=== PATIENT | male | born 1990 | race Caucasian/White ===

== ENCOUNTER 2017-03-30 08:58 | Emergency (ER) | payer SELFPAY ==
[2017-03-30 09:45] VITALS: BP 139/79
--- NOTE | 2017-03-30 11:05 | RAD ---
INDICATION: Cough fever and wheezing. COMPARISON: There are no prior studies available for comparison. TECHNIQUE: Dual-energy PA and lateral views of the chest were obtained. FINDINGS: The heart is within normal limits in size. Mediastinal and hilar contours appear within normal limits. The lungs are clear. No pleural effusion is present. IMPRESSION: NO EVIDENCE FOR ACTIVE CARDIOPULMONARY DISEASE.
--- NOTE | 2017-03-30 11:10 | UC ---
Respiratory Complaint HPI - HPI Summary HPI Summary: PT C/O SEVERAL WEEKS OF HARSH COUGH, CONGESTION, MADERA, FATIGUE, SUBJECTIVE FEVER AND CHILLS. HAS BODY ACHES. - History of Current Complaint Chief Complaint: UCRespiratory Stated Complaint: DIZZY,EXHAUSTED/HEADACHE Time Seen by Provider: 03/30/17 10:35 Hx Obtained From: Patient Onset/Duration: Gradual Onset, Lasting Weeks, Still Present Timing: Constant Severity Initially: Moderate Severity Currently: Moderate Pain Intensity: 7 Pain Scale Used: 0-10 Numeric Character: Cough: Productive Aggravating Factors: Nothing Alleviating Factors: Nothing Associated Signs And Symptoms: Positive: Fever, Chills, Wheezing, Nasal Congestion. Negative: Dyspnea - Allergies/Home Medications Allergies/Adverse Reactions: Allergies Allergy/AdvReac Type Severity Reaction Status Date / Time No Known Allergies Allergy Verified 03/30/17 09:44 PMH/Surg Hx/FS Hx/Imm Hx Previously Healthy: Yes - Surgical History Surgical History: None - Family History Known Family History: Positive: Hypertension - Social History Alcohol Use: Occasionally Substance Use Type: None Smoking Status (MU): Light Every Day Tobacco Smoker Type: Smokeless Tobacco Amount Used/How Often: 1 can per week Review of Systems Constitutional: Fever, Chills, Fatigue ENT: Nasal Discharge Respiratory: Cough Cardiovascular: Negative Gastrointestinal: Nausea Genitourinary: Negative Musculoskeletal: Myalgia Neurological: Headache All Other Systems Reviewed And Are Negative: Yes Physical Exam Triage Information Reviewed: Yes Appearance: No Pain Distress, Well-Nourished, Ill-Appearing - mildly Vital Signs: Initial Vital Signs Temp 98.8 F 03/30/17 09:40 Pulse 83 03/30/17 09:40 Resp 16 03/30/17 09:40 BP 139/79 03/30/17 09:40 Pulse Ox 99 03/30/17 09:40 Vital Signs Reviewed: Yes Eyes: Positive: Conjunctiva Clear ENT: Positive: Hearing grossly normal, Pharynx normal, TMs normal - BUT PARTIALLY OBSTRUCTED BY CERUMEN Neck: Positive: Supple, Nontender, No Lymphadenopathy Respiratory: Positive: No respiratory distress, No accessory muscle use, Decreased breath sounds, Rhonchi - DIFFUSELY, Wheezing - INTERMITTENT Cardiovascular Exam: Normal Abdomen Description: Positive: Soft Musculoskeletal: Positive: No Edema Neurological: Positive: Alert Psychological: Positive: Age Appropriate Behavior Skin: Negative: rashes UC Diagnostic Evaluation - Laboratory O2 Sat by Pulse Oximetry: 99 - Radiology Xray Interpretation: No Acute Changes - CHEST XRAY Radiology Interpretation Completed By: Radiologist Respiratory Course/Dx - Differential Dx/Diagnosis Provider Diagnoses: BRONCHITIS WITH BRONCHOSPASM Discharge - Discharge Plan Condition: Stable Disposition: HOME Prescriptions: Azithromycin [Azithromycin 500 MG TAB] 500 mg PO DAILY #5 tab Guaifenesin-Codeine [Codeine/Guaifenesin 100-10 mg/5Ml] 5 - 10 ml PO Q6H PRN # 150 ml MDD 40ML PRN Reason: Cough Patient Education Materials: Acute Bronchitis (ED), Bronchospasm (ED) Forms: *Work Release Referrals: No Primary Care Phys,NOPCP [Primary Care Provider] - Additional Instructions: CHEST XRAY TODAY UNREMARKABLE. SEEK FOLLOW-UP HERE OR WITH A PCP IF YOU ARE NOT IMPROVING WITH TREATMENT OVER THE NEXT WEEK OR SO. CALL THE NUMBER BELOW FOR ASSISTANCE IN ESTABLISHING WITH A PCP An additional resource available to assist in finding the appropriate physician for your health care needs is [facility] ([facility]). You may contact them by calling [phone].
== END 2017-03-30 11:34 | disposition home or self-care (01) ==
LOC: UCCORT 08:58
DX: J20.9 Acute bronchitis, unspecified (principal); R50.9 Fever, unspecified; R09.81 Nasal congestion; R53.83 Other fatigue; R51 Headache; R05 Cough; F17.220 Nicotine dependence, chewing tobacco, uncomplicated
CPT/HCPCS: 71020; 87502; 99212; G0463